=== PATIENT | male | born 1990 | race Caucasian/White ===

== ENCOUNTER 2016-12-07 12:36 | Emergency (ER) | payer OTHER ==
[~2016-12-07] VITALS: Ht 172.7 cm; Wt 58.5 kg
[2016-12-07 12:40] VITALS: BP 139/82
--- NOTE | 2016-12-07 12:42 | NUR ---
Patient ambulated to bed 01.
--- NOTE | 2016-12-07 12:42 | NUR ---
Wendy tran in [facility] - 12/07/16 at 1251 by ARTEM Patient ambualted to .
--- NOTE | 2016-12-07 12:44 | NUR ---
26M BIB SELF C/O INTERMITTENT RT EAR PAIN SINCE BRACES WERE REMOVED 5 DAYS AGO; PT DENIES PAIN TO EAR AT THIS TIME; PT C/O PALPITATIONS X LAST NIGHT, BUT DENIES CHEST PAIN AT THIS TIME; TACHYCARDIA NOTED ON THE MONITOR AT THIS TIME; PT A&OX4, BL LUNG SOUNDS CLEAR, RR EVEN/UNLABORED, SKIN IS WARM/DRY/INTACT AT THIS TIME; PT DENIES N/V/D AT THIS TIME; PT PLACED ON MONITOR, RESTINGING IN BED W/ HOB ELEVATED AND IN LOWEST POSITION; POSITIONED FOR COMFORT; ER MD MADE AWARE OF STATUS. WILL CONTINUE TO MONITOR.
--- NOTE | 2016-12-07 12:48 | NUR ---
Wendy tran in ED - 12/07/[address] at [address] Grady evaluating patient at bedside.
--- NOTE | 2016-12-07 12:51 | NUR ---
Dr. Grady evaluating patient at bedside.
[2016-12-07] MEDS ORDERED: NACL 0.9% 1,000 ML IV ONE (12:55)
--- NOTE | 2016-12-07 13:03 | NUR ---
XRAY AT BEDSIDE.
[2016-12-07] MEDS ORDERED: NACL 0.9% 1,000 ML IV SCH (13:05)
--- NOTE | 2016-12-07 13:23 | NUR ---
IV BOLUS FLUIDS NOT SHOWING UP IN E-MAR; ADMINISTERED IV BOLUS 0.9% SODIUM CHLORIDE 1,000 ML PER ER MD DR. COLLINS VERBAL ORDER TO LEFT AC IV AT THIS TIME. WILL CONTINUE TO MONITOR.
--- NOTE | 2016-12-07 13:39 | NUR ---
NADR FROM IV FLUIDS ADMINISTERED AT THIS TIME. WILL CONTINUE TO MONITOR.
--- NOTE | 2016-12-07 14:03 | NUR ---
IV FLUIDS END TIME 1403; TOTAL FLUIDS GIVEN 999 ML; PT VSS AT THIS TIME.
--- NOTE | 2016-12-07 15:21 | NUR ---
Dr. Grady at bedside to re-evaluate patient.
--- NOTE | 2016-12-07 15:40 | NUR ---
IV removed, catheter intact and site benign. Applied folded 4x4 gauze and tape to stop bleeding. PT TOLERATED PROCEDURE WELL.
[2016-12-07 15:43] VITALS: BP 123/70
--- NOTE | 2016-12-07 15:43 | NUR ---
Patient discharged with v/s stable. Written and verbal after care instructions given and explained. Patient alert, oriented and verbalized understanding of instructions. Ambulatory with steady gait. All questions addressed prior to discharge. ID band removed. Patient advised to follow up with PMD. Rx of TYLENOL 325MG given. Patient educated on indication of medication including possible reaction and side effects. Opportunity to ask questions provided and answered.
== END 2016-12-07 15:43 | disposition home or self-care (01) ==
LOC: MED 12:36
DX: R00.2 Palpitations (principal); R03.0 Elevated blood-pressure reading, without diagnosis of hypertension; H92.01 Otalgia, right ear
CPT/HCPCS: 36415; 71010; 80053; 82553; 83880; 84443; 84484; 85025; 85610; 85730; 93005; 96360; 99285; J7030; Q0092